=== PATIENT | male | born 1980 | race Caucasian/White ===

== ENCOUNTER 2021-02-24 04:58 | Emergency (ER) | payer OTHER ==
[2021-02-24 05:59] LABS: BASOPHIL 0.8 % (0-2); EOSINOPHIL 2.5 % (0-5); HCT 42.7 % (42.0-52.0); HGB 15.1 g/dl (13.2-18.0); LYMPHOCYTE 20.1 % (15-48); MCH 32.8 pg (25.0-31.0); MCHC 35.4 g/dL (32.0-36.0); MCV 92.6 fL (78.0-100.0); MONOCYTE 15.9 % (0-12); MPV 11.1 fL (6.0-9.5); NEUTROPHIL 60.2 % (41-80); NRBC 0; PLT 132 K/uL (150-400); RBC 4.61 M/uL (4.70-6.00); RDW 12.3 % (11.5-14.0); WBC 6.5 K/uL (4.0-10.5)
[2021-02-24 06:11] LABS: BUN/CREAT RATIO (CALC) 18.8 RATIO; CREATININE 0.8 mg/dL (0.67-1.17); POTASSIUM 4.2 mmol/L (3.5-5.1)
[2021-02-24] MEDS ORDERED: PULMICORT FLE180 MCG INH (07:03)
[2021-02-24] MEDS ORDERED: VENTOLIN HFA IN18 GM INH (07:03)
== END 2021-02-24 08:36 | disposition home or self-care (01) ==
LOC: FER 04:58
PROVIDERS: Emergency Medicine Emergency Medical Services
DX: U07.1 COVID-19 (principal); Z23 Encounter for immunization
CPT/HCPCS: 36415; 71045; 80048; 84484; 85025; 94640; 94664; M0245; Q0245; U0002